=== PATIENT | female | born 1955 | race Caucasian/White ===

== ENCOUNTER 2020-10-16 13:30 | Day surgery (SDC) | payer OTHER ==
[2020-10-16] MEDS ORDERED: BAMLANIVIMAB 700 MG, ETESEVIMAB 700 MG/20 ML 1,400 MG in Sodium Chloride 0.9% 250 ML 25... IVPB SCH (14:30)
[2020-10-16] MEDS ORDERED: Acetaminophen 500 MG TAB ONE (14:36)
[2020-10-16] MEDS ORDERED: diphenhydrAMINE 50 MG/ML VIAL ONE (14:37)
== END 2020-10-16 17:30 | disposition home or self-care (01) ==
LOC: CSHSDC/OP 13:30
PROVIDERS: ATTEND Anesthesiology
DX: U07.1 COVID-19 (principal); Z23 Encounter for immunization
CPT/HCPCS: J1200; J7050; M0245; Q0245